=== PATIENT | female | born 1995 | race Caucasian/White ===

== ENCOUNTER 2017-05-22 18:16 | Emergency (ER) | payer OTHER ==
[~2017-05-22 18:16] MED LIST: AZITHROMYCIN250 MG PO; CYCLOBENZAPRINE10 MG PO; ESTRACE0.5 MG PO; FLONASE ALLERG9.9 ML NS; IBUPROFEN200 MG PO; IBUPROFEN400 MG PO; IBUPROFEN600 MG PO; IBUPROFEN800 MG PO; LIDOCAINE30 G TOP; MIRALAX17 GM PO; MIRENA1 EACH IY; NORCO 5-325 TA1 EACH PO; OMEPRAZOLE20 MG PO; POLYETHYLENE GL17 GM PO; PREDNISONE20 MG PO; PRENATAL COMPL1 EACH PO; TUMS200 MG PO; ZANTAC150 MG PO; ZOFRAN ODT4 MG PO; ZOFRAN ODT4 MG SL; [UNRECOGNIZED DRUG - OTHER]; [UNRECOGNIZED DRUG - OTHER] PO
== END 2017-05-22 19:58 | disposition home or self-care (01) ==
LOC: ED 18:16
DX: S80.01XA Contusion of right knee, initial encounter (principal); F32.9 Major depressive disorder, single episode, unspecified; F41.9 Anxiety disorder, unspecified; W01.10XA Fall on same level from slipping, tripping and stumbling with subsequent striking against unspecified object, initial encounter; Z88.0 Allergy status to penicillin; Z88.8 Allergy status to other drugs, medicaments and biological substances
CPT/HCPCS: 73560; 99283

== ENCOUNTER 2017-09-09 19:26 | Emergency (ER) | payer OTHER ==
[~2017-09-09] VITALS: Ht 157.5 cm; Wt 85.7 kg
== END 2017-09-09 20:00 | disposition left against medical advice (07) ==
LOC: ED 19:26
DX: Z53.21 Procedure and treatment not carried out due to patient leaving prior to being seen by health care provider (principal)

== ENCOUNTER 2017-12-19 23:00 | Emergency (ER) | payer OTHER ==
[~2017-12-19] VITALS: Ht 157.5 cm; Wt 85.7 kg
== END 2017-12-20 02:05 | disposition home or self-care (01) ==
LOC: ED 23:00
DX: J11.1 Influenza due to unidentified influenza virus with other respiratory manifestations (principal); Z88.0 Allergy status to penicillin; Z88.5 Allergy status to narcotic agent; Z88.8 Allergy status to other drugs, medicaments and biological substances
CPT/HCPCS: 99282

== ENCOUNTER 2018-07-11 18:13 | Emergency (ER) | payer OTHER ==
[~2018-07-11] VITALS: Ht 157.5 cm; Wt 85.7 kg
== END 2018-07-11 20:44 | disposition home or self-care (01) ==
LOC: ED 18:13
DX: N93.8 Other specified abnormal uterine and vaginal bleeding (principal); F32.9 Major depressive disorder, single episode, unspecified; F41.9 Anxiety disorder, unspecified; G43.909 Migraine, unspecified, not intractable, without status migrainosus; Z88.0 Allergy status to penicillin; Z88.5 Allergy status to narcotic agent
CPT/HCPCS: 76830; 76856; 84702; 85025; 99284

== ENCOUNTER 2018-07-19 19:07 | Emergency (ER) | payer OTHER ==
[~2018-07-19] VITALS: Ht 157.5 cm; Wt 85.7 kg
[2018-07-19] MEDS ORDERED: PROVERA10 MG PO (22:13)
[2018-07-19] MEDS ORDERED: TRAMADOL HCL50 MG PO (22:13)
== END 2018-07-19 22:26 | disposition home or self-care (01) ==
LOC: ED 19:07
DX: N93.9 Abnormal uterine and vaginal bleeding, unspecified (principal); F32.9 Major depressive disorder, single episode, unspecified; F41.9 Anxiety disorder, unspecified; G43.909 Migraine, unspecified, not intractable, without status migrainosus; Z88.0 Allergy status to penicillin; Z88.5 Allergy status to narcotic agent; Z88.8 Allergy status to other drugs, medicaments and biological substances
CPT/HCPCS: 80048; 81001; 84703; 85025; 99284

== ENCOUNTER 2019-02-20 19:19 | Emergency (ER) | payer OTHER ==
[~2019-02-20] VITALS: Ht 157.5 cm; Wt 90.7 kg
[~2019-02-20 19:19] MED LIST changes: +PROVERA10 MG PO; +TRAMADOL HCL50 MG PO
--- OUTSIDE RECORDS SUMMARY | 2019-02-20 19:22 | XMS ---
PreManage Notification: MIGUEL ÁNGEL PHILLIP Security Technical Publications Manager Events 1 event(s) in the past 18 months Most recent security events: Elopement at [facility] 09/09/2017 19:26 - Patient eloped before treatment completed. Details: CHARU CRITERIA MET - Group Notification CARE PROVIDERS ALONDRA LEÓN Physician Hide Measuring Machine Operator 07/20/2018-Current PHONE: [phone] Alondra León PA-C Treatment Current PHONE: Unknown [facility] Primary Care Current PHONE: Unknown P[facility] WEINER Primary Care 09/23/2016-Current PHONE: [phone] Chun has no Care Guidelines for this patient. Brent VISIT COUNT (12 MO.) 4 AQUILES Hdz TOTAL 4 NOTE: Visits indicate total known visits. ED/UCC VISIT TRACKING (12 MO.) 02/20/2019 19:20 A[facility] [place] TYPE: Emergency COMPLAINT: - AROX 7 WKS ; VAGINAL BLEEDING 07/19/2018 19:08 AQUILES Dickersonony Frank [facility] TYPE: Emergency COMPLAINT: - VAGINAL BLEEDING DIAGNOSES: - Migraine, unspecified, not intractable, without status migrainosus - Abnormal uterine and vaginal bleeding, unspecified - Allergy status to penicillin - Allergy status to narcotic agent status - Allergy status to other drugs, medicaments and biological substances status - Anxiety disorder, unspecified - Major depressive disorder, single episode, unspecified 07/11/2018 18:14 [facility] [place] TYPE: Emergency COMPLAINT: - VAGINAL BLEEDING DIAGNOSES: - Migraine, unspecified, not intractable, without status migrainosus - Allergy status to narcotic agent status - Other specified abnormal uterine and vaginal bleeding - Abnormal uterine and vaginal bleeding, unspecified - Major depressive disorder, single episode, unspecified - Allergy status to penicillin - Anxiety disorder, unspecified 06/13/2018 21:34 A[facility] [place] TYPE: Emergency COMPLAINT: - POSS MISCARRIAGE DIAGNOSES: - Allergy status to narcotic agent status - Allergy to other foods - Complete or unspecified spontaneous without complication - Allergy status to penicillin - Hemorrhage in early , unspecified INPATIENT VISIT TRACKING (12 MO.) No inpatient visits to display in this time frame [id number]
[2019-02-20] MEDS ORDERED: REGLAN10 MG PO (19:41)
== END 2019-02-20 22:56 | disposition home or self-care (01) ==
LOC: ED 19:19
DX: O20.9 Hemorrhage in early pregnancy, unspecified (principal); O99.341 Other mental disorders complicating pregnancy, first trimester; F32.9 Major depressive disorder, single episode, unspecified; F41.9 Anxiety disorder, unspecified; Z90.49 Acquired absence of other specified parts of digestive tract; Z88.0 Allergy status to penicillin; Z91.018 Allergy to other foods; Z88.5 Allergy status to narcotic agent; Z3A.01 Less than 8 weeks gestation of pregnancy
CPT/HCPCS: 76801; 80053; 81001; 84702; 85025; 99284-25

== ENCOUNTER 2019-02-25 15:23 | Emergency (ER) | payer OTHER ==
[~2019-02-25] VITALS: Ht 157.5 cm; Wt 93.4 kg
[~2019-02-25 15:23] MED LIST changes: +REGLAN10 MG PO
--- OUTSIDE RECORDS SUMMARY | 2019-02-25 15:26 | XMS ---
PreManage Notification: MIGUEL ÁNGEL PHILLIP Security Instructor Technical Training Events 1 event(s) in the past 18 months Most recent security events: Elopement at [facility] 09/09/2017 19:26 - Patient eloped before treatment completed. Details: LWBS CRITERIA MET - Group Notification - [facility] - Has Care Guidelines - [facility] - 2 Visits in 30 Days CARE PROVIDERS ALONDRA LEÓN Physician Maid Supervisor 07/20/2018-Current PHONE: [phone] Alondra León PA-C Treatment Current PHONE: Unknown [facility] Primary Care Current PHONE: Unknown PENNY WEINER Primary Care 09/23/2016-Current PHONE: [phone] Chun has no Care Guidelines for this patient. Care History Medical/Surgical 02/22/2019 [facility] - PATIENT CURRENT OBGYN IS DR MARSHALL- NEXT APT 03/10/19 @ 3:00PM. Brent VISIT COUNT (12 MO.) 5 [facility] H. TOTAL 5 NOTE: Visits indicate total known visits. ED/UCC VISIT TRACKING (12 MO.) 02/25/2019 15:24 AQUILES Harper [place] TYPE: Emergency COMPLAINT: - VAGINAL BLEEDING, 8 WKS 02/20/2019 19:20 AQUILES [facility] [place] TYPE: Emergency COMPLAINT: - AROX 7 WKS ; VAGINAL BLEEDING DIAGNOSES: - Less than 8 weeks gestation of - Hemorrhage in early , unspecified - Acquired absence of other specified parts of digestive tract - Other mental disorders complicating , first trimester - Allergy status to narcotic agent status - Allergy status to penicillin - Allergy to other foods - Major depressive disorder, single episode, unspecified - Anxiety disorder, unspecified 07/19/2018 19:08 AQUILES Harper [place] TYPE: Emergency COMPLAINT: - [...] visits to display in this time frame [email or web address]
[2019-02-25] MEDS ORDERED: PRENATAL VITAM1 EAC6 (15:42)
== END 2019-02-25 16:09 | disposition home or self-care (01) ==
LOC: ED 15:23
DX: O20.0 Threatened abortion (principal); Z90.49 Acquired absence of other specified parts of digestive tract; Z88.0 Allergy status to penicillin; Z91.018 Allergy to other foods; Z88.5 Allergy status to narcotic agent; Z3A.08 8 weeks gestation of pregnancy
CPT/HCPCS: 99284-25

== ENCOUNTER 2019-04-17 03:49 | Emergency (ER) | payer OTHER ==
[~2019-04-17] VITALS: Ht 157.5 cm; Wt 93.4 kg
[~2019-04-17 03:49] MED LIST changes: +PRENATAL VITAM1 EAC6
--- OUTSIDE RECORDS SUMMARY | 2019-04-17 03:52 | XMS ---
PreManage Notification: MIGUEL ÁNGEL PHILLIP Security Chip Mixing Machine Operator Events No recent Security Events currently on file CRITERIA MET - Group Notification - [facility] CARE PROVIDERS ALONDRA LEÓN Physician Sales Promoter 07/20/2018-Current PHONE: [phone] SAKSHI ROBLES Obstetrics \T\ Gynecology 02/26/2019-Current PHONE: Unknown Alondra León PA-C Treatment Current PHONE: Unknown [facility] Primary Care Current PHONE: Unknown [facility] WEINER Primary Care 09/23/2016-Current PHONE: [phone] Chun has no Care Guidelines for this patient. Care History Medical/Surgical 02/22/2019 [facility] - PATIENT CURRENT OBGYN IS DR MARSHALL- NEXT APT 03/10/19 @ 3:00PM. Brent VISIT COUNT (12 MO.) 6 [facility]. TOTAL 6 NOTE: Visits indicate total known visits. ED/UCC VISIT TRACKING (12 MO.) 04/17/2019 03:49 AQUILES Harper [place] TYPE: Emergency COMPLAINT: - ABDOMINAL PAIN 02/25/2019 15:24 AQUILES [facility] [place] TYPE: Emergency COMPLAINT: - VAGINAL BLEEDING, 8 WKS DIAGNOSES: - 8 weeks gestation of - Hemorrhage in early , unspecified - Allergy status to penicillin - Threatened - Allergy to other foods - Acquired absence of other specified parts of digestive tract - Allergy status to narcotic agent status 02/20/2019 19:20 AQUILES Harper [place] TYPE: Emergency [...] visits to display in this time frame [id number]
== END 2019-04-17 05:40 | disposition home or self-care (01) ==
LOC: ED 03:49
DX: O99.89 Other specified diseases and conditions complicating pregnancy, childbirth and the puerperium (principal); K59.00 Constipation, unspecified; Z88.5 Allergy status to narcotic agent; Z88.0 Allergy status to penicillin; Z91.018 Allergy to other foods; Z3A.15 15 weeks gestation of pregnancy
CPT/HCPCS: 80053; 81001; 83690; 85025; 87088; 99284

== ENCOUNTER 2019-05-03 20:52 | Emergency (ER) | payer OTHER ==
[~2019-05-03] VITALS: Ht 157.5 cm; Wt 93.4 kg
--- OUTSIDE RECORDS SUMMARY | 2019-05-03 20:54 | XMS ---
PreManage Notification: MIGUEL ÁNGEL PHILLIP Security Gate Technician Events No recent Security Events currently on file CRITERIA MET - Group Notification - [facility] - Has Care Guidelines - [facility] - 2 Visits in 30 Days CARE PROVIDERS ALONDRA LEÓN Physician Lock Setter 07/20/2018-Current PHONE: [phone] SAKSHI ROBLES \T\ Gynecology 02/26/2019-Current PHONE: Unknown Alondra León PA-C Treatment Current PHONE: Unknown [facility] Primary Care Current PHONE: [phone] PENNY WEINER Primary Care 09/23/2016-Current PHONE: [phone] Chun has no Care Guidelines for this patient. Care History Medical/Surgical 04/21/2019 [facility] - PATIENT HAS DECLINED [facility]. - [facility] CONTACTED PATIENT AND DISCUSSED ED UTILIZATION AND THE UTILIZATION OF THE OBGYN. 02/22/2019 [facility] - PATIENT CURRENT OBGYN IS DR MARSHALL- NEXT APT 03/10/19 @ 3:00PM. Brent VISIT COUNT (12 MO.) 7 [facility] H. TOTAL 7 NOTE: Visits indicate total known visits. ED/UCC VISIT TRACKING (12 MO.) 05/03/2019 20:53 AQUILES Harper [place] TYPE: Emergency COMPLAINT: - FALL,17 WEEKS 04/17/2019 03:49 AQUILES [facility] [place] TYPE: Emergency COMPLAINT: - ABDOMINAL PAIN DIAGNOSES: - Allergy to other foods - Constipation, unspecified - 15 weeks gestation of - Other specified diseases and conditions complicating , childbirth and the puerperium - Allergy status to narcotic agent status - Allergy status to penicillin 02/25/2019 15:24 AQUILES Harper [place] TYPE: Emergency [...] visits to display in this time frame [id number]
== END 2019-05-03 23:00 | disposition home or self-care (01) ==
LOC: ED 20:52
DX: O9A.212 Injury, poisoning and certain other consequences of external causes complicating pregnancy, second trimester (principal); S80.219A Abrasion, unspecified knee, initial encounter; M54.5 Low back pain; Z88.0 Allergy status to penicillin; Z88.5 Allergy status to narcotic agent; Z88.8 Allergy status to other drugs, medicaments and biological substances; Z3A.17 17 weeks gestation of pregnancy; W01.0XXA Fall on same level from slipping, tripping and stumbling without subsequent striking against object, initial encounter
CPT/HCPCS: 99283

== ENCOUNTER 2019-09-08 22:09 | Observation (INO) | payer OTHER ==
[~2019-09-08] VITALS: Ht 160 cm; Wt 104.0 kg
== END 2019-09-09 22:00 | disposition home or self-care (01) ==
LOC: FBCO 22:09 → FBC 09-09 05:50
PROVIDERS: ADMIT Obstetrics & Gynecology
DX: O47.00 False labor before 37 completed weeks of gestation, unspecified trimester (principal); Z3A.35 35 weeks gestation of pregnancy
CPT/HCPCS: 59025; 81001; 87653; 99213; G0378

== ENCOUNTER 2019-09-28 06:22 | Inpatient (IN) | payer OTHER ==
[~2019-09-28] VITALS: Ht 160 cm; Wt 103.4 kg
--- NOTE | ~2019-09-28 | OR ---
[facility] [address] [place], [place] [address] Draft DATE OF OPERATION: 09/28/2019 SURGEON: Kat Canales MD DUBBING MACHINE OPERATOR: Dr. Johnson. PREOPERATIVE DIAGNOSES: Term , preeclampsia without severe features, intolerance to labor. POSTOPERATIVE DIAGNOSES: Term , preeclampsia without severe features, intolerance to labor, delivered. PROCEDURE: Primary section with low segment transverse uterine incision. ANESTHESIA: Epidural. ESTIMATED BLOOD LOSS: 700 mL. DRAINS: Morelos catheter. INDICATIONS AND FINDINGS: The patient is a 24-year-old female, 3, para 1, SAB 1, admitted at 38 and 3/7th weeks for induction secondary to preeclampsia. has been remarkable for obesity with excess weight gain. She also had a cerclage placed at 20 weeks after identification of a short cervix with funneling at her routine ultrasound. Her cerclage had come off her cervix several weeks ago and was officially removed approximately 2 weeks ago. Her cervix had been scarred and stenotic at 1 cm during this entire time. She did receive one dose of Cytotec. She was negro well and artificial rupture of membranes was done using the trumpet for the pudendal to allow for a small trickle as she also had excess fluid. She failed to make any progress through most of the day and then went from 1 to 7 within a very short period time. She then went to complete. She began pushing with good effort, but failed to really bring the baby down after 2 hours of pushing. At this point, there was also tachycardia as well as some intermittent lates and variables. At that point, it was felt the delivery was not PATIENT NAME: MIGUEL ÁNGEL PHILLIP OPERATIVE REPORT DATE OF : 94 REPORT #: [id number] PHYSICIAN: KAT CANALES MD PCP: KAT CANALES MD REPORT IS CONFIDENTIAL AND NOT TO BE RELEASED WITHOUT AUTHORIZATION [facility] [address] [place], [place] [address] Draft imminent and the baby would not tolerate this further. She was given subcu terbutaline and consented for section. She was delivered of a little boy from the LOP position via lower segment transverse uterine incision with Apgars of 6, 7, and 9 and weight of 10 pounds 3 ounces. Fluid was clear at delivery. The uterine wall appeared edematous. The tubes, ovaries, and placenta otherwise appeared normal. Cord gases were 732 and 727. DESCRIPTION OF PROCEDURE: The patient was prepped and draped in the supine position. A Pfannenstiel skin incision was made and carried down through the fascia and the incision extended laterally. The inferior and superior fascial flaps were then created. The muscles were bluntly divided and the peritoneum opened bluntly and the incision extended superiorly and inferiorly. The Tobin retractor was placed. The uterine incision was made at the upper aspect of the peritoneal reflection. This was difficult to determine given the edema of the uterine wall. The baby was delivered with the above findings and handed off to the pediatric staff in attendance. The head was not deeply engaged in the pelvis. Following this, the placenta was removed. The uterus was explored with a lap tape assuring no remaining fragments. The edges of the incision were identified and the uterus closed in 2 layers using #0 Monocryl. The first layer was a running locking stitch and the second was a vertical imbricating stitch with occasional locking stitches. Additional bqrxlb-wf-vcsdeh were required in the mid section for control of bleeding. Another tpwbhy-iq-qmzpo was required near the patient's right angle for control of bleeding. The abdomen was then irrigated and inspected and bleeding points were controlled with cautery along the peritoneum. Following this, the retractor was removed and the peritoneum identified. Following this, the Evicel was used to dribble over the uterine incision to aid further in hemostasis. An ACell patch was also laid over the lower segment to aid in healing. The peritoneum was then closed with a running suture of 3-0 Vicryl. The fascia and muscles brought together with interrupted sutures of 0 Vicryl. This area was irrigated and bleeding points controlled with cautery. The remaining Evicel was sprinkled over this layer as well and ACell powder was also used on this layer to aid in healing. The fascia was then closed from each angle to the midline with a running suture of 0 Vicryl. The subcutaneous tissue was irrigated and bleeding points were controlled with cautery. The deep space was closed with interrupted sutures of 3-0 Vicryl. The skin was closed with laura. All sponge and needle counts were correct. She tolerated the procedure well and was taken to the recovery room in good condition. Kat Canales MD PATIENT NAME: MIGUEL ÁNGEL PHILLIP OPERATIVE REPORT DATE OF : 94 REPORT #: [id number] PHYSICIAN: KAT CANALES MD PCP: KAT CANALES MD REPORT IS CONFIDENTIAL AND NOT TO BE RELEASED WITHOUT AUTHORIZATION [facility] [address] [place], [place] [address] Draft [facility] /[id number] cc: Dr. Johnson Copies: ~ PATIENT NAME: MIGUEL ÁNGEL PHILLIP OPERATIVE REPORT DATE OF : [birth year] REPORT #: [id number] PHYSICIAN: KAT CANALES MD PCP: KAT CANALES MD REPORT IS CONFIDENTIAL AND NOT TO BE RELEASED WITHOUT AUTHORIZATION
--- NOTE | 2019-09-28 10:54 | PR ---
[facility] [address] [place], [place] [address] Signed Progress Notes IP Datetime Report Generated by KAREN: 09/28/2019 10:54 PROGRESS NOTES: [id number] Impression: Reassuring heart rate Procedures: Artificial ROM; Sterile Vag Exam Plan: Continue present management Informed Consent Obtain: Vaginal Delivery; Induction of Labor; Risks, Benefits and Alternatives Discussed Other Informed Consents: risks with increased fluid and cord prolapse discussed as well VITAL SIGNS: [id number] Vital Signs: Reviewed VS Notable Details: mild HTN EXAM: [id number] Dilatation: 1.0 Effacement: 90 Station: -2 Uterine Contractions: q 2 to 4 min MEMBRANES: [id number] Pooling: Negative Nitrazine: Positive Ferning: Negative Membrane Status: Intact ROM Note: AROM accomplished with pudendal trumpet and needle with trickle clear fluid seen Comments: Comfortable after epidural. Cervix still feels very firm without any further dilation. Will continue. Fetus A: [id number] FHR Baseline: 140 Variability: Moderate 6-25bpm Accelerations: 15X15 Decelerations: None FHR Category: Category I Presentation: Vertex Comments on Fetus A: No evidence of metabolic acidosis Fetus B: [id number] Signing Physician: Kat Canales MD Copies: *Electronically Signed* 09/28/19 1054 KAT CANALES MD PATIENT NAME: MIGUEL ÁNGEL PHILLIP PROGRESS NOTE DATE OF : [birth year] PHYSICIAN: KAT CANALES MD RPT #: [id number] REPORT IS CONFIDENTIAL AND NOT TO BE RELEASED WITHOUT AUTHORIZATION [facility] [address] [place] [address] Signed ~ *Electronically Signed* 09/28/19 1054 KAT CANALES MD PATIENT NAME: MIGUEL ÁNGEL PHILLIP PROGRESS NOTE DATE OF : 94 PHYSICIAN: KAT CANALES MD RPT #: [id number] REPORT IS CONFIDENTIAL AND NOT TO BE RELEASED WITHOUT AUTHORIZATION
--- NOTE | 2019-09-28 12:34 | PR ---
[facility] [address] [place], [place] [address] Signed Progress Notes IP Datetime Report Generated by KAREN: 09/28/2019 12:34 PROGRESS NOTES: [id number] Impression: Reassuring heart rate Procedures: Sterile Vag Exam Plan: Continue present management Informed Consent Obtain: Vaginal Delivery; Induction of Labor; Risks, Benefits and Alternatives Discussed Other Informed Consents: risks with increased fluid and cord prolapse discussed as well VITAL SIGNS: [id number] Vital Signs: Reviewed VS Notable Details: mild HTN EXAM: [id number] Dilatation: 1.0 Effacement: 95 Station: -2 Uterine Contractions: q 1 to 3 min MEMBRANES: [id number] Pooling: Negative Nitrazine: Positive Ferning: Negative Membrane Status: Intact ROM Note: AROM accomplished with pudendal trumpet and needle with trickle clear fluid seen Comments: Getting uncomfortable again. Cervix without change. Will redose epidural when anesthesia available. Fetus A: [id number] FHR Baseline: 140 Variability: Moderate 6-25bpm Accelerations: 15X15 Decelerations: None FHR Category: Category I Presentation: Vertex Comments on Fetus A: No evidence of metabolic acidosis Fetus B: [id number] Signing Physician: Kat Canales MD Copies: *Electronically Signed* 09/28/19 1234 KAT CANALES MD PATIENT NAME: MIGUEL ÁNGEL PHILLIP PROGRESS NOTE DATE OF : 94 PHYSICIAN: KAT CANALES MD RPT #: [id number] REPORT IS CONFIDENTIAL AND NOT TO BE RELEASED WITHOUT AUTHORIZATION [facility] [address] [place], [place] [address] Signed ~ *Electronically Signed* 09/28/19 1234 KAT CANALES MD PATIENT NAME: MIGUEL ÁNGEL PHILLIP PROGRESS NOTE DATE OF : 94 PHYSICIAN: KAT CANALES MD RPT #: [id number] REPORT IS CONFIDENTIAL AND NOT TO BE RELEASED WITHOUT AUTHORIZATION
--- NOTE | 2019-09-28 16:56 | PR ---
[facility] [address] [place], [place] [address] Signed Progress Notes IP Datetime Report Generated by KAREN: 09/28/2019 16:56 PROGRESS NOTES: [id number] Impression: Normal progression of labor; Reassuring heart rate Procedures: Sterile Vag Exam; Sterile Speculum Exam Plan: Continue present management Informed Consent Obtain: Vaginal Delivery; Induction of Labor; Risks, Benefits and Alternatives Discussed Other Informed Consents: risks with increased fluid and cord prolapse discussed as well VITAL SIGNS: [id number] Vital Signs: Reviewed VS Notable Details: mild HTN EXAM: [id number] Dilatation: 7.0 Effacement: 100 Station: -2 Uterine Contractions: q 1 to 4 min MEMBRANES: [id number] Pooling: Negative Nitrazine: Positive Ferning: Negative Membrane Status: Intact ROM Note: AROM accomplished with pudendal trumpet and needle with trickle clear fluid seen Comments: Had not had any cervical change and decision had been made to try a manual dilation. However, when the speculum was placed, it was clear there had been significant cervical change since her recent exam. Will continue. Fetus A: [id number] FHR Baseline: 145 Variability: Moderate 6-25bpm Accelerations: 15X15 Decelerations: None FHR Category: Category I Presentation: Vertex Comments on Fetus A: No evidence of metabolic acidosis Fetus B: [id number] Signing Physician: Kat Canales MD *Electronically Signed* 09/28/19 8696 KAT CANALES MD PATIENT NAME: MIGUEL ÁNGEL PHILLIP PROGRESS NOTE DATE OF : 94 PHYSICIAN: KAT CANALES MD RPT #: [id number] REPORT IS CONFIDENTIAL AND NOT TO BE RELEASED WITHOUT AUTHORIZATION [address] [address] Signed Copies: ~ *Electronically Signed* 09/28/19 1656 KAT CANALES MD PATIENT NAME: MIGUEL ÁNGEL PHILLIP PROGRESS NOTE DATE OF : 94 PHYSICIAN: KAT CANALES MD RPT #: [id number] REPORT IS CONFIDENTIAL AND NOT TO BE RELEASED WITHOUT AUTHORIZATION
--- NOTE | 2019-09-28 17:33 | PR ---
[facility] [address] [place], [place] [address] Signed Progress Notes IP Datetime Report Generated by KAREN: 09/28/2019 17:33 PROGRESS NOTES: [id number] Impression: Normal progression of labor Procedures: Sterile Vag Exam Plan: Continue present management Informed Consent Obtain: Vaginal Delivery; Induction of Labor; Risks, Benefits and Alternatives Discussed Other Informed Consents: risks with increased fluid and cord prolapse discussed as well VITAL SIGNS: [id number] Vital Signs: Reviewed VS Notable Details: mild HTN EXAM: [id number] Dilatation: 8.0 Effacement: 100 Station: -2 Uterine Contractions: q 1 to 3 min MEMBRANES: [id number] Pooling: Negative Nitrazine: Positive Ferning: Negative Membrane Status: Intact ROM Note: AROM accomplished with pudendal trumpet and needle with trickle clear fluid seen Comments: Progressing. Will continue. Fetus A: [id number] FHR Baseline: 140 Variability: Moderate 6-25bpm Accelerations: 15X15 Decelerations: None FHR Category: Category I Presentation: Vertex Comments on Fetus A: No evidence of metabolic acidosis Fetus B: [id number] Signing Physician: Kat Canales MD Copies: *Electronically Signed* 09/28/19 1733 KAT CANALES MD PATIENT NAME: MIGUEL ÁNGEL PHILLIP PROGRESS NOTE DATE OF : 94 PHYSICIAN: KAT CANALES MD RPT #: [id number] REPORT IS CONFIDENTIAL AND NOT TO BE RELEASED WITHOUT AUTHORIZATION [facility] [address] [place] [address] Signed ~ *Electronically Signed* 09/28/19 1733 KAT CANALES MD PATIENT NAME: MIGUEL ÁNGEL PHILLIP PROGRESS NOTE DATE OF : 94 PHYSICIAN: KAT CANALES MD RPT #: [id number] REPORT IS CONFIDENTIAL AND NOT TO BE RELEASED WITHOUT AUTHORIZATION
--- NOTE | 2019-09-28 18:10 | PR ---
[facility] [address] [place], [place] [address] Signed Progress Notes IP Datetime Report Generated by KAREN: 09/28/2019 18:10 PROGRESS NOTES: [id number] Impression: Normal progression of labor Procedures: Sterile Vag Exam Plan: Continue present management Other Plans: position changes Informed Consent Obtain: Vaginal Delivery; Induction of Labor; Risks, Benefits and Alternatives Discussed Other Informed Consents: risks with increased fluid and cord prolapse discussed as well VITAL SIGNS: [id number] Vital Signs: Reviewed VS Notable Details: mild HTN EXAM: [id number] Dilatation: 9.0 Effacement: 100 Station: -1 Uterine Contractions: q 1 to 3 min MEMBRANES: [id number] Pooling: Negative Nitrazine: Positive Ferning: Negative Membrane Status: Intact ROM Note: AROM accomplished with pudendal trumpet and needle with trickle clear fluid seen Comments: Progressing. Appears to be ROP. Will try extreme side positions to help with rotation. Fetus A: [id number] FHR Baseline: 150 Variability: Moderate 6-25bpm Accelerations: 15X15 Decelerations: None FHR Category: Category I Presentation: Vertex Comments on Fetus A: No evidence of metabolic acidosis Fetus B: [id number] Signing Physician: Kat Canales MD *Electronically Signed* 09/28/19 1810 KAT CANALES MD PATIENT NAME: MIGUEL ÁNGEL PHILLIP PROGRESS NOTE DATE OF : 94 PHYSICIAN: KAT CANALES MD RPT #: [id number] REPORT IS CONFIDENTIAL AND NOT TO BE RELEASED WITHOUT AUTHORIZATION [facility] [address] [place], [place] [address] Signed Copies: ~ *Electronically Signed* 09/28/19 1810 KAT CANALES MD PATIENT NAME: MIGUEL ÁNGEL PHILLIP PROGRESS NOTE DATE OF : 94 PHYSICIAN: KAT CANALES MD RPT #: [id number] REPORT IS CONFIDENTIAL AND NOT TO BE RELEASED WITHOUT AUTHORIZATION
--- NOTE | 2019-09-28 21:00 | PR ---
[facility] [address] [place], [place] [address] Signed Progress Notes IP Datetime Report Generated by KAREN: 09/28/2019 21:00 PROGRESS NOTES: [id number] Impression: Non-reassuring heart rate Procedures: Sterile Vag Exam Plan: Deliver- Section Other Plans: position changes Informed Consent Obtain: Section Delivery; Risks, Benefits and Alternatives Discussed Other Informed Consents: risks with increased fluid and cord prolapse discussed as well VITAL SIGNS: C1090636 Vital Signs: Reviewed VS Notable Details: mild HTN EXAM: [id number] Dilatation: 10.0 Effacement: 100 Station: -1 Uterine Contractions: q 1 to 3 min MEMBRANES: [id number] Pooling: Negative Nitrazine: Positive Ferning: Negative Membrane Status: Intact ROM Note: AROM accomplished with pudendal trumpet and needle with trickle clear fluid seen Comments: She has been pushing for almost 2 hrs with mimimal progress. FHTs are no longer reassuring and as delivery is not imminent, I feel delivery by C/S is needed. Will give SubQ terb now to allow resuscitation. Will plan C/S for approx 30 min from now. PARQ done. Fetus A: [id number] FHR Baseline: 180 Variability: Moderate 6-25bpm Accelerations: None Decelerations: Late; Variable FHR Category: Category II Presentation: Vertex Comments on Fetus A: recurrent variables and some lates Fetus B: [id number] Signing Physician: Sakshi Canales MD *Electronically Signed* 09/28/192099 SAKSHI CANALES MD PATIENT NAME: MIGUEL ÁNGEL PHILLIP PROGRESS NOTE DATE OF : 94 PHYSICIAN: SAKSHI CANALES MD RPT #: [id number] REPORT IS CONFIDENTIAL AND NOT TO BE RELEASED WITHOUT AUTHORIZATION [facility] [address] [place], [place] [address] Signed Copies: ~ *Electronically Signed* 09/28/192099 SAKSHI CANALES MD PATIENT NAME: MIGUEL ÁNGEL PHILLIP PROGRESS NOTE DATE OF : 94 PHYSICIAN: SAKSHI CANALES MD RPT #: [id number] REPORT IS CONFIDENTIAL AND NOT TO BE RELEASED WITHOUT AUTHORIZATION
--- NOTE | 2019-09-28 23:10 | NUR ---
09/28/19 2310 Oralia Bowman 2252: PT ARRIVES TO [facility] RM 102 FROM OR AWAKE WITH EVEN, UNLABORED RESP. PT HAS IV TYLENOL INFUSING. WARM BLANKETS IN PLACE, FAMILY IN ROOM AT BEDSIDE. 2305: PT STATES NO NAUSEA AND THAT ABD PAIN IS "KIND OF SHARP" WHEN ASKED. SPINAL LEVEL IS T4. PT SHAKING, PROVIDED MORE WARM BLANKETS.
--- NOTE | 2019-09-29 08:26 | PR ---
[facility] [address] [facility] [address] [place], [place] [address] Signed PP Progress Notes Datetime Report Generated by CPN: 09/29/2019 08:26 SUBJECTIVE: [id number] Pain: Within normal limits Nausea/Vomiting: Denies Vital Signs: [id number] Vital Signs: Reviewed EXAM: [id number] Cardiovascular: Normal Respiratory: Normal Abdomen/Uterus: Abnormal Lochia: Normal Vulva/Perineum: Not Done Breasts: Not Done CVA Tenderness: Not Done Extremities: Normal Incision: Normal Progress: Abnormal Exam Comments: Abdomen with active BS. Fundus firm, NT @ U-1. H/H 7/22.3, WBC 19.4, plat 243k IMPRESSION/PLAN/PROCEDURES: [id number] Impression: Normal progression Plan: Continue present management Other Plans: begin ambulation with assist later today Progress Notes: Doing OK so far. Baby also doing well in nursery. She is anemic so will need to see how she tolerates ambulation later today. Signing Physician: Kat Canales MD Copies: ~ *Electronically Signed* 09/29/19 0826 KAT CANALES MD PATIENT NAME: MIGUEL ÁNGEL PHILLIP PROGRESS NOTE DATE OF : [birth year] PHYSICIAN: KAT CANALES MD RPT #: [id number] REPORT IS CONFIDENTIAL AND NOT TO BE RELEASED WITHOUT AUTHORIZATION
--- NOTE | 2019-09-30 08:23 | PR ---
[facility] [address] [facility] [place], [place] [address] Signed PP Progress Notes Datetime Report Generated by CPN: 09/30/2019 08:23 SUBJECTIVE: [id number] Pain: Within normal limits Nausea/Vomiting: Denies Vital Signs: [id number] Vital Signs: Reviewed Notable Details: occ mild HTN EXAM: [id number] Cardiovascular: Normal Respiratory: Normal Abdomen/Uterus: Abnormal Lochia: Normal Vulva/Perineum: Not Done Breasts: Not Done CVA Tenderness: Not Done Extremities: Normal Incision: Normal Progress: Abnormal Exam Comments: Abdomen with active BS. Fundus firm, NT @ U-1. IMPRESSION/PLAN/PROCEDURES: [id number] Impression: Normal progression; difficulties Plan: Continue present management; consult Other Plans: begin ambulation with assist later today Progress Notes: Doing well. Will continue present care. Signing Physician: Kat Canales MD Copies: ~ *Electronically Signed* 09/30/19822 KAT CANALES MD PATIENT NAME: MIGUEL ÁNGEL PHILLIP PROGRESS NOTE DATE OF : [birth year] PHYSICIAN: KAT CANALES MD RPT #: [id number] REPORT IS CONFIDENTIAL AND NOT TO BE RELEASED WITHOUT AUTHORIZATION
--- NOTE | 2019-10-01 08:05 | PR ---
[facility] [address] [place] [place] [address] Signed PP Progress Notes Datetime Report Generated by CPN: 10/01/2019 08:05 SUBJECTIVE: [id number] Pain: Within normal limits Nausea/Vomiting: Denies Vital Signs: [id number] Vital Signs: Reviewed; Within Normal Limits Notable Details: occ mild HTN EXAM: [id number] Cardiovascular: Normal Respiratory: Normal Abdomen/Uterus: Abnormal Lochia: Normal Vulva/Perineum: Not Done Breasts: Not Done CVA Tenderness: Not Done Extremities: Abnormal Incision: Normal Progress: Not Applicable Exam Comments: Abdomen with active BS. Fundus firm, NT @ U-1. 2+ LE edema IMPRESSION/PLAN/PROCEDURES: [id number] Impression: Normal progression Plan: Remove laura; Discharge Other Plans: begin ambulation with assist later today Procedures: None Progress Notes: Doing well. She is ready for D/C. Signing Physician: Kat Canales MD Copies: ~ *Electronically Signed* 10/01/19 0805 KAT CANALES MD PATIENT NAME: MIGUEL ÁNGEL PHILLIPNEELOnel PROGRESS NOTE DATE OF : [birth year] PHYSICIAN: KAT CANALES MD RPT #: [id number] REPORT IS CONFIDENTIAL AND NOT TO BE RELEASED WITHOUT AUTHORIZATION
== END 2019-10-01 12:00 | disposition home or self-care (01) | DRG 787 ==
LOC: FBC 06:22
PROVIDERS: ADMIT Obstetrics & Gynecology
PROC: 10907ZC Drainage of Amniotic Fluid, Therapeutic from Products of Conception, Via Natural or Artificial Opening (ICD-10-PCS; 2019-09-28)
PROC: 3E0P7VZ Introduction of Hormone into Female Reproductive, Via Natural or Artificial Opening (ICD-10-PCS; 2019-09-28)
PROC: 00HU33Z Insertion of Infusion Device into Spinal Canal, Percutaneous Approach (ICD-10-PCS; 2019-09-28)
PROC: 3E0R3BZ Introduction of Anesthetic Agent into Spinal Canal, Percutaneous Approach (ICD-10-PCS; 2019-09-28)
PROC: 10D00Z1 Extraction of Products of Conception, Low, Open Approach (ICD-10-PCS; principal; 2019-09-28 21:31)
DX: O14.04 Mild to moderate pre-eclampsia, complicating childbirth (principal); O26.873 Cervical shortening, third trimester; O99.354 Diseases of the nervous system complicating childbirth; Z3A.38 38 weeks gestation of pregnancy; Z37.0 Single live birth; O99.214 Obesity complicating childbirth; E66.9 Obesity, unspecified; O26.03 Excessive weight gain in pregnancy, third trimester; O76 Abnormality in fetal heart rate and rhythm complicating labor and delivery; O36.63X0 Maternal care for excessive fetal growth, third trimester, not applicable or unspecified; O40.3XX0 Polyhydramnios, third trimester, not applicable or unspecified; O99.02 Anemia complicating childbirth; D64.9 Anemia, unspecified; G43.009 Migraine without aura, not intractable, without status migrainosus; Z79.899 Other long term (current) drug therapy; Z88.0 Allergy status to penicillin; Z88.5 Allergy status to narcotic agent
CPT/HCPCS: 01961; 36415; 82565; 82570; 82803; 84156; 84450; 84520; 84550; 85025; 85027; A9270; J0131; J0690; J1644; J2250; J2274; J2300; J2370; J2405; J2590; J2795; J3105; J7121

== ENCOUNTER 2020-02-05 20:18 | Emergency (ER) | payer BC ==
[~2020-02-05] VITALS: Ht 160 cm; Wt 103.4 kg
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
[2020-02-05] MEDS ORDERED: ZOFRAN4 MG PO (23:49)
== END 2020-02-06 | disposition home or self-care (01) ==
LOC: ED 20:18
DX: K52.9 Noninfective gastroenteritis and colitis, unspecified (principal); G43.909 Migraine, unspecified, not intractable, without status migrainosus; F41.9 Anxiety disorder, unspecified; F32.9 Major depressive disorder, single episode, unspecified; Z88.0 Allergy status to penicillin
CPT/HCPCS: 80053; 81001; 83735; 84703; 85025; 96361; 96374; 96376; 99284-25; J2405; J7030

== ENCOUNTER 2021-07-23 20:47 | Emergency (ER) | payer OTHER ==
[~2021-07-23] VITALS: Ht 157.5 cm; Wt 98.9 kg
[~2021-07-23 20:47] MED LIST changes: +ZOFRAN4 MG PO
--- OUTSIDE RECORDS SUMMARY | 2021-07-23 20:50 | XMS ---
PreManage Notification: MIGUEL ÁNGEL PHILLIP Security Set Up Mechanic Stamping Machines Events No recent Security Events currently on file CRITERIA MET - Group Notification CARE PROVIDERS ION DUNCAN Physician Contracting Analyst 07/20/2018-Current PHONE: [phone] Jordyn Boogie Loader Operator/Computer Meteorologist Current PHONE: [phone] MARCELO RAMIREZ Family Medicine Current PHONE: [phone] SAKSHI ROBLES 02/26/2019-Current PHONE: [phone] Chun has no Care Guidelines for this patient. Care History Medical/Surgical 04/21/2019 [facility] - PATIENT HAS DECLINED [facility]. - CHW CONTACTED PATIENT AND DISCUSSED ED UTILIZATION AND THE UTILIZATION OF THE OBGYN. 02/22/2019 [facility] - PATIENT CURRENT OBGYN IS DR MARSHALL- NEXT APT 03/10/19 @ 3:00PM. [place] VISIT COUNT (12 MO.) 1 [facility] H. TOTAL 1 NOTE: Visits indicate total known visits. ED/UCC VISIT TRACKING (12 MO.) 07/23/2021 20:48 [facility] [place] TYPE: Emergency COMPLAINT: - POSS MISCARRIAGE INPATIENT VISIT TRACKING (12 MO.) No inpatient visits to display in this time frame [email or web address]
== END 2021-07-23 22:40 | disposition home or self-care (01) ==
LOC: ED 20:47
DX: O03.9 Complete or unspecified spontaneous abortion without complication (principal); G43.909 Migraine, unspecified, not intractable, without status migrainosus; Z88.8 Allergy status to other drugs, medicaments and biological substances; Z88.0 Allergy status to penicillin; Z88.5 Allergy status to narcotic agent
CPT/HCPCS: 76801; 76817; 81001; 84702; 85025; 99284-25

== ENCOUNTER 2021-12-29 19:15 | Emergency (ER) | payer OTHER ==
[~2021-12-29] VITALS: Ht 157.5 cm; Wt 98.9 kg
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
[2021-12-29] MEDS ORDERED: DULOXETINE HCL30 MG PO (19:37)
[2021-12-29] MEDS ORDERED: NASAL DECONGEST30 MG PO (21:38)
[2021-12-29] MEDS ORDERED: CYCLOBENZAPRINE10 MG PO (21:38)
--- NOTE | 2021-12-30 17:51 | EKG ---
[facility] [address] [facility] [place], [place] [address] Signed Sinus tachycardia Otherwise normal ECG No previous ECGs available Confirmed by JOSE ROBLES MD ([id number]) on 12/30/2021 5:51:24 PM Electronically Signed By: JOSE ROBLES MD 12/30/21 175 PATIENT NAME: MIGUEL ÁNGEL PHILLIP Electrocardiogram DATE OF : [birth year] PHYSICIAN: JOSE ROBLES MD REPORT #: [id number] REPORT IS CONFIDENTIAL AND NOT TO BE RELEASED WITHOUT AUTHORIZATION
== END 2021-12-29 21:58 | disposition home or self-care (01) ==
LOC: ED 19:15
DX: U07.1 COVID-19 (principal); G43.909 Migraine, unspecified, not intractable, without status migrainosus; Z88.0 Allergy status to penicillin; Z88.5 Allergy status to narcotic agent; Z88.8 Allergy status to other drugs, medicaments and biological substances; Z91.09 Other allergy status, other than to drugs and biological substances; Z79.899 Other long term (current) drug therapy
CPT/HCPCS: 36415; 71045; 80048; 82553; 84484; 85025; 85610; 93005; 93010; 96374; 99285-25; A9270; J1885

== ENCOUNTER 2022-05-31 01:09 | Emergency (ER) | payer OTHER ==
[~2022-05-31] VITALS: Ht 157.5 cm; Wt 94.8 kg
[~2022-05-31 01:09] MED LIST changes: +DULOXETINE HCL30 MG PO; +FLUCONAZOLE100 MG PO; +METRONIDAZOLE500 MG PO; +NASAL DECONGEST30 MG PO; +NITROFURANTOIN100 M1 PO
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
== END 2022-05-31 02:06 | disposition left against medical advice (07) ==
LOC: ED 01:09
DX: R50.9 Fever, unspecified (principal); G43.909 Migraine, unspecified, not intractable, without status migrainosus; Z88.8 Allergy status to other drugs, medicaments and biological substances; Z88.0 Allergy status to penicillin; Z88.5 Allergy status to narcotic agent
CPT/HCPCS: 36415; 80053; 81001; 85025; 87502; 99283; U0003

== ENCOUNTER 2022-12-13 00:47 | Emergency (ER) | payer OTHER ==
[~2022-12-13] VITALS: Ht 157.5 cm; Wt 100.2 kg
--- OUTSIDE RECORDS SUMMARY | 2022-12-13 00:52 | XMS ---
PreManage Notification: MIGUEL ÁNGEL PHILLIP Security Human Resources Designate Events 1 event(s) in the past 18 months Most recent security events: Elopement at [facility] 05/31/2022 01:09 - Patient eloped before treatment completed. - Patient with suicidal and/or homicidal ideations eloped. - Patient eloped with IV in place. Details: PATIENT LEFT AMA CRITERIA MET - [facility] - 2 Visits in 30 Days - Group Notification CARE PROVID[facility], Clinic/Center: Dental Current INCZahra PHONE: Unknown STEPHANIE AWAD Global Human Resources Director/General Maintenance Mechanic Current PHONE: [phone] MARCELO RAMIREZ [facility] Current PHONE: Unknown SAKSHI ROBLES Obstetrics \T\ Gynecology 02/26/2019-Current PHONE: Unknown Chun has no Care Guidelines for this patient. Care History Medical/Surgical 04/21/2019 [facility] - PATIENT HAS DECLINED [facility] SERVICES. - CHW CONTACTED PATIENT AND DISCUSSED ED UTILIZATION AND THE UTILIZATION OF THE OBGYN. 02/22/2019 [facility] - PATIENT CURRENT OBGYN IS DR MARSHALL- NEXT APT 03/10/19 @ 3:00PM. E.DZahra VISIT COUNT (12 MO.) 5 [facility] H. TOTAL 5 NOTE: Visits indicate total known visits. ED/UCC VISIT TRACKING (12 MO.) 12/13/2022 00:47 [facility] [place] TYPE: Emergency COMPLAINT: - SUICIDAL 12/01/2022 21:50 [facility] [place] TYPE: Emergency COMPLAINT: - 5 WEEKS AND SPOTTING DIAGNOSES: - Allergy status to other drugs, medicaments and biological substances - Allergy status to penicillin - Allergy status to narcotic agent - Irregular menstruation, unspecified - Abnormal uterine and vaginal bleeding, unspecified 05/31/2022 01:09 [facility] [place] TYPE: Emergency COMPLAINT: - SEIZURE DIAGNOSES: - Migraine, unspecified, not intractable, without status migrainosus - Allergy status to other drugs, medicaments and biological substances - Allergy status to narcotic agent - Fever, unspecified - Allergy status to penicillin 03/17/2022 23:49 [facility] [place] TYPE: Emergency COMPLAINT: - LEG SWELLING, CHEST PAIN DIAGNOSES: - Migraine, unspecified, not intractable, without status migrainosus - Allergy status to other drugs, medicaments and biological substances - Allergy status to penicillin - Pain in left leg - Other chest pain - Pain in right leg 12/29/2021 19:15 [facility] [place] TYPE: Emergency COMPLAINT: - FLU SYMPTOMS DIAGNOSES: - Allergy status to penicillin - Migraine, unspecified, not intractable, without status migrainosus - COUGH, UNSPECIFIED - Other halfway (current) drug therapy - Allergy status to narcotic agent - Allergy status to other drugs, medicaments and biological substances - Other allergy status, other than to drugs and biological substances - COVID-19 - Cough, unspecified INPATIENT VISIT TRACKING (12 MO.) No inpatient visits to display in this time frame [id number]
== END 2022-12-13 02:10 | disposition home or self-care (01) ==
LOC: ED 00:47
DX: R45.851 Suicidal ideations (principal); G43.909 Migraine, unspecified, not intractable, without status migrainosus; Z88.8 Allergy status to other drugs, medicaments and biological substances; Z88.0 Allergy status to penicillin; Z88.5 Allergy status to narcotic agent
CPT/HCPCS: 36415; 80053; 84443; 84703; 85025; 99284; G0480

== ENCOUNTER 2023-09-09 18:17 | Emergency (ER) | payer OTHER ==
[~2023-09-09] VITALS: Ht 157.5 cm; Wt 107.5 kg
[~2023-09-09 18:17] MED LIST changes: +ESCITALOPRAM OX10 MG PO; +METFORMIN HCL500 MG PO
--- OUTSIDE RECORDS SUMMARY | 2023-09-09 18:24 | XMS ---
PreManage Notification: MIGUEL ÁNGEL VASQUEZ Security Rn Procedures Events 2 event(s) in the past 18 months Most recent security events: Elopement at [facility] 04/29/2023 19:18 - Patient eloped before treatment completed. - Patient with suicidal and/or homicidal ideations eloped. - Patient eloped with IV in place. Details: Patient LWOB. Elopement at [facility] 05/31/2022 01:09 - Patient eloped before treatment completed. - Patient with suicidal and/or homicidal ideations eloped. - Patient eloped with IV in place. Details: PATIENT LEFT AMA CRITERIA MET - Group Notification CARE PROVIDERS SAKSHI ROBLEST\ Gynecology 02/26/2019-Current PHONE: Unknown -[place]- Dentist: Sap Mobility Architect [facility] PHONE: [phone] [facility], [facility] PH[facility]: Unknown Chun has no Care Guidelines for this patient. Care History Medical/Surgical 04/21/2019 [facility] - PATIENT HAS DECLINED [facility]. - CHW CONTACTED PATIENT AND DISCUSSED ED UTILIZATION AND THE UTILIZATION OF THE OBGYN. 02/22/2019 [facility] - PATIENT CURRENT OBGYN IS DR MARSHALL- AMELIA APT 03/10/19 @ 3:00PM. Brent VISIT COUNT (12 MO.) 5 [facility] H. TOTAL 5 NOTE: Visits indicate total known visits. ED/UCC VISIT TRACKING (12 MO.) 09/09/2023 18:18 [facility] [place] TYPE: Emergency COMPLAINT: - RT SIDED PAIN 05/01/2023 17:14 [facility] Cohen EliZahra [facility] [place] TYPE: Emergency COMPLAINT: - ABD PAIN, DIZZY, SOB DIAGNOSES: - Allergy status to narcotic agent - Allergy status to other drugs, medicaments and biological substances - Allergy status to penicillin - Constipation, unspecified - Other nonmedicinal substance allergy status - Unspecified abdominal pain 04/29/2023 19:18 [facility] [place] TYPE: Emergency COMPLAINT: - ABD PAIN 12/13/2022 00:47 [facility] [place] TYPE: Emergency COMPLAINT: - SUICIDAL DIAGNOSES: - Allergy status to narcotic agent - Allergy status to other drugs, medicaments and biological substances - Allergy status to penicillin - Migraine, unspecified, not intractable, without status migrainosus - Suicidal ideations 12/01/2022 21:[address] [facility] [place] TYPE: Emergency COMPLAINT: - 5 WEEKS AND SPOTTING DIAGNOSES: - Abnormal uterine and vaginal bleeding, unspecified - Allergy status to narcotic agent - Allergy status to other drugs, medicaments and biological substances - Allergy status to penicillin - Irregular menstruation, unspecified INPATIENT VISIT TRACKING (12 MO.) No inpatient visits to display in this time frame [id number]
[2023-09-09 19:34] LABS: BILIRUBIN, URINE NEGATIVE (negative); BLOOD/HGB, URINE SMALL (Negative); KETONE, URINE NEGATIVE (Negative); LEUK ESTERASE, URINE NEGATIVE (negative); NITRITE, URINE NEGATIVE (negative); PH, URINE 5.5 (5-7)
[2023-09-09 19:44] LABS: BACTERIA, URINE RARE /hpf (negative); CASTS, URINE NONE SEEN \\lpf; COLLECTION TYPE, URINE CLEAN CATCH; CRYSTALS, URINE NONE SEEN (0-1+); EPITHELIAL CELLS, URINE SQUAMOUS 3+ /lpf (0-1+); REFLEX CULTURE, URINE No (No); WHITE BLOOD CELLS, URINE 0-1 /HPF (0-5)
[2023-09-09 20:09] LABS: BASOPHILS 0.7 % (0-2); HEMATOCRIT 39.7 % (35.0-50.0); HEMOGLOBIN 13.1 g/dL (12.0-18.0); LYMPHOCYTES 35.9 % (24-44); MCH 28.4 (27-36); MCHC 32.9 g/dl (30-36); MCV 86.2 fl (81-99); MONOCYTES 12.6 % (0-12); NEUTROPHILS 48.8 % (39-80); PLATELET COUNT 375 K/uL (140-440); RDW 12.2 (10.5-15.0)
[2023-09-09 20:23] LABS: ALBUMIN 3.6 g/dL (3.4-5.0); ALBUMIN/GLOBULIN RATIO 0.86 (1.1-2.4); BILIRUBIN, TOTAL 0.2 ng/dL (0.2-1.0); BUN/CREATININE RATIO 10.22 (6.0-28.6); CALCIUM 9.2 mg/dL (8.5-10.1); CREATININE, SERUM 0.88 mg/dL (0.55-1.02); PROTEIN, TOTAL 7.8 g/dL (6.4-8.2)
[2023-09-09] MEDS ORDERED: HYDROCODON-ACE1 EA10 PO (21:40)
[2023-09-09 22:10] VITALS: BP 149/85
== END 2023-09-09 22:12 | disposition home or self-care (01) ==
LOC: ED 18:17
PROVIDERS: Emergency Medicine
DX: R10.31 Right lower quadrant pain (principal); Z88.0 Allergy status to penicillin; Z88.5 Allergy status to narcotic agent; Z88.8 Allergy status to other drugs, medicaments and biological substances
CPT/HCPCS: 36415; 74177; 80053; 81001; 83690; 84703; 85025; A9270; J2270; J2405; J7121; Q9967

== ENCOUNTER 2024-07-31 19:42 | Emergency (ER) | payer OTHER ==
[~2024-07-31] VITALS: Ht 157.5 cm; Wt 110.0 kg
[~2024-07-31 19:42] MED LIST changes: +HYDROCODON-ACE1 EA10 PO
[2024-07-31] MEDS ORDERED: FAMOTIDINE 20 MG/ 2 ML VIAL IV ONE (20:00)
[2024-07-31] MEDS ORDERED: KETOROLAC TROMETHAMINE 30 MG/ML VIAL IV ONE (20:00)
[2024-07-31] MEDS ORDERED: LACTATED RINGER'S 1,000 ML IV ONE (20:00)
[2024-07-31 20:01] LABS: BASOPHILS 0.1 % (0-2); EOSINOPHILS 0.9 % (0-6); HEMATOCRIT 43.1 % (35.0-50.0); HEMOGLOBIN 14.8 g/dL (12.0-18.0); LYMPHOCYTES 8.9 % (24-44); MCH 29.6 (27-36); MCHC 34.3 g/dl (30-36); MCV 86.5 fl (81-99); MONOCYTES 5.7 % (0-12); NEUTROPHILS 84.4 % (39-80); PLATELET COUNT 329 K/uL (140-440); RBC 4.98 M/ul (4.3-5.7); RDW 12.3 (10.5-15.0)
[2024-07-31 20:13] LABS: ALBUMIN 3.7 g/dL (3.4-5.0); ALBUMIN/GLOBULIN RATIO 0.82 (1.1-2.4); ANION GAP 16.8 (7-21); BILIRUBIN, TOTAL 0.6 ng/dL (0.2-1.0); BUN/CREATININE RATIO 10.67 (6.0-28.6); CREATININE, SERUM 1.03 mg/dL (0.55-1.02); MAGNESIUM 1.6 mg/dL (1.8-2.4); POTASSIUM 3.8 mmol/L (3.5-5.1); PROTEIN, TOTAL 8.2 g/dL (6.4-8.2)
[2024-07-31] MEDS ORDERED: fentaNYL citrate 100 MCG/2 ML VIAL IV ONE (20:15)
[2024-07-31] MEDS ORDERED: ondansetron HCL 4 MG/2 ML VIAL IV ONE (20:15)
[2024-07-31 21:19] LABS: BILIRUBIN, URINE NEGATIVE (negative); BLOOD/HGB, URINE NEGATIVE (Negative); KETONE, URINE TRACE (Negative); LEUK ESTERASE, URINE NEGATIVE (negative); NITRITE, URINE NEGATIVE (negative); PH, URINE 5.5 (5-7)
[2024-07-31 21:26] LABS: BACTERIA, URINE 1+ /hpf (negative); CASTS, URINE NONE SEEN \\lpf; COLLECTION TYPE, URINE CLEAN CATCH; CRYSTALS, URINE NONE SEEN (0-1+); EPITHELIAL CELLS, URINE SQUAMOUS 1+ /lpf (0-1+); REFLEX CULTURE, URINE No (No)
[2024-07-31] MEDS ORDERED: droPERidol 5 MG/2 ML VIAL IV ONE (21:30)
[2024-07-31] MEDS ORDERED: ONDANSETRON ODT4 MG PO (22:42)
[2024-07-31] MEDS ORDERED: ONDANSETRON 4 MG HOME.PACK SL ONE (22:45)
[2024-07-31 22:51] VITALS: BP 123/89
== END 2024-07-31 22:52 | disposition home or self-care (01) ==
LOC: ED 19:42
PROVIDERS: Internal Medicine
DX: B34.9 Viral infection, unspecified (principal); Z88.0 Allergy status to penicillin; Z88.5 Allergy status to narcotic agent; Z88.8 Allergy status to other drugs, medicaments and biological substances; Z91.048 Other nonmedicinal substance allergy status
CPT/HCPCS: 36415; 74177; 80053; 81001; 83690; 83735; 84703; 85025; 96375; 99284-25; A9270; J1790; J1885; J2405; J7121; Q9967

== ENCOUNTER 2025-03-26 13:43 | Emergency (ER) | payer OTHER ==
[~2025-03-26] VITALS: Ht 157.5 cm; Wt 102.4 kg
[~2025-03-26 13:43] MED LIST changes: +ONDANSETRON ODT4 MG PO
[2025-03-26 15:07] LABS: BASOPHILS 0.4 % (0-2); EOSINOPHILS 1.7 % (0-6); HEMATOCRIT 41.9 % (35.0-50.0); HEMOGLOBIN 14.8 g/dL (12.0-18.0); LYMPHOCYTES 29.9 % (24-44); MCH 29.7 (27-36); MCHC 35.3 g/dl (30-36); MCV 84.1 fl (81-99); MONOCYTES 9.1 % (0-12); NEUTROPHILS 58.9 % (39-80); PLATELET COUNT 384 K/uL (140-440); RBC 4.99 M/ul (4.3-5.7); RDW 13.2 (10.5-15.0)
[2025-03-26 15:27] LABS: ALBUMIN 3.9 g/dL (3.4-5.0); ALBUMIN/GLOBULIN RATIO 0.81 (1.1-2.4); ALKALINE PHOSPHATASE 115 U/L (46-116); ALT (SGPT) 37 U/L (14-59); ANION GAP 15.7 (7-21); AST (SGOT) 40 U/L (15-37); BILIRUBIN, TOTAL 0.6 mg/dL (0.2-1.0); BUN/CREATININE RATIO 16.04 (6.0-28.6); CALCIUM 9.1 mg/dL (8.5-10.1); CARBON DIOXIDE 26 mmol/L (21-32); CHLORIDE 103 mmol/L (98-107); CREATININE, SERUM 0.81 mg/dL (0.55-1.02); GLOMERULAR FILTRATION RATE,EST 100 mL/min (>60); POTASSIUM 4.7 mmol/L (3.5-5.1); PROTEIN, TOTAL 8.7 g/dL (6.4-8.2); UREA NITROGEN 13 mg/dL (7-18)
[2025-03-26 16:24] VITALS: BP 119/87
--- NOTE | 2025-03-28 08:22 | EKG ---
[facility] [address] [facility] [place], [place] [address] Signed Normal sinus rhythm with sinus arrhythmia Normal ECG Confirmed by Nyla Sandoval MD ([id number]) on 03/28/2025 8:22:02 AM Electronically Signed By: NYLA SANDOVAL MD 03/28/25821 PATIENT NAME: MIGUEL ÁNGEL VASQUEZ Electrocardiogram DATE OF : [birth year] PHYSICIAN: NYLA SANDOVAL MD REPORT #: [id number] REPORT IS CONFIDENTIAL AND NOT TO BE RELEASED WITHOUT AUTHORIZATION
== END 2025-03-26 16:24 | disposition home or self-care (01) ==
LOC: ED 13:43
PROVIDERS: Emergency Medicine
DX: R07.9 Chest pain, unspecified (principal); G43.909 Migraine, unspecified, not intractable, without status migrainosus; Z79.899 Other long term (current) drug therapy; Z88.0 Allergy status to penicillin; Z88.5 Allergy status to narcotic agent; Z91.018 Allergy to other foods; Z88.8 Allergy status to other drugs, medicaments and biological substances
CPT/HCPCS: 36415; 71045; 80053; 84484; 84702; 85025; 85379; 93005; 93010; 99285-25